=== PATIENT | female | born 1990 | race Caucasian/White ===

== ENCOUNTER 2016-12-22 18:59 | Outpatient (CLI) | payer MEDICAID ==
[~2016-12-22] VITALS: Ht 154.9 cm; Wt 91.6 kg
[~2016-12-22 18:59] MED LIST: ACIDOPHILUS1 CTB PO; BACTRIM DS 8001 TA1 PO; CEPHALEXIN500 MG PO; CLINDAMYCIN HC300 MG PO; LIDOCAINE 2% VI1 UDC TP; MEDROL 4MG. DOSE4 MG PO; MUSCLE RELAXER; TRAMADOL 50MG T50 MG PO
[2016-12-22 19:34] LABS: URINE BILIRUBIN - DIPSTICK NEGATIVE (NEG); URINE BLOOD NEGATIVE (NEG)
[2016-12-22 19:51] VITALS: BP 131/79
[2016-12-22] MEDS ORDERED: PRENATAL PLUS1 TA1 PO (19:57)
[2016-12-22] MEDS ORDERED: IRON TABLETS325 MG PO (19:58)
[2016-12-22 20:30] LABS: AMPHETAMINES/METAMPHETAMINES NEGATIVE ng/mL (<1000)
[2016-12-27 03:40] LABS: Neisseria gonorrhoeae, NAA Negative (Negative)
== END 2016-12-22 21:50 | disposition home or self-care (01) ==
LOC: OBOUT 18:59 → OB 19:01 → OBOUT 21:50
PROVIDERS: Obstetrics & Gynecology
DX: O26.93 Pregnancy related conditions, unspecified, third trimester (principal); Z3A.30 30 weeks gestation of pregnancy; R10.84 Generalized abdominal pain; N93.9 Abnormal uterine and vaginal bleeding, unspecified

== ENCOUNTER 2017-01-04 07:40 | Inpatient (IN) | payer MEDICAID ==
[~2017-01-04] VITALS: Ht 154.9 cm; Wt 102.1 kg
[2017-01-04 07:30] VITALS: BP 155/91
[~2017-01-04 07:40] MED LIST changes: +IRON TABLETS325 MG PO; +PRENATAL PLUS1 TA1 PO
--- NOTE | 2017-01-04 08:06 | Delivery Note ---
Delivery note Delivery date: 01/04/17 Delivery time: 06 Anesthesia: None Was labor medically induced? No Gestational age in weeks: 34 weeks Days: 2 days Delivery prior to 39 weeks? Yes Justification for delivery: Active labor Sex: male Type of suction: bulb AF: Meconium-stained LAC or MLE: LAC (NONE) Delivery procedure: Normal Delivery Delivery of placenta: spontaneous Clinical note She is a 26-year-old 5 para 3 aborta 1 who was 34 weeks and 2 days gestational age. Around midnight last night she started having some crampiness and Cristian Sterling likes contractions. She said that she had a warm bath and then around 4 AM they started getting a little stronger. She still thought they were [place] Sterling and then began having stronger contractions. She subsequently delivered spontaneously a liveborn male child at around 6:30 this morning. The actual delivery time was not available. The baby is a liveborn male child weighing 3 lbs. 9 oz. He is 15 inches long. He will be transferred to [facility] later this morning. She received IV oxytocin and delivered spontaneously the placenta at 7:56 AM. It had a normal three-vessel cord. It appeared there may have been some form of abruption. She did not get her profile so we'll get her blood this morning. Her estimated blood loss was approximately 400 mL. We will plan to discharge her home later today as long she stable. at 0806
[2017-01-04 09:21] LABS: HEMOGLOBIN 13.5 g/dL (12.2-16.2); LYMPH % 6.3 % (10-50.0)
[2017-01-04 10:59] LABS: NEUTROPHILS 87 % (42-76)
--- NOTE | 2017-01-04 11:42 | Discharge Summary ---
Discharge Summary Admission date: 01/04/17 Discharge date: 01/04/17 Discharge diagnoses: , delivery at home Clinical note: She is a 26-year-old 5 now para 4 aborta 1 who was 34 weeks gestational age. She began having contractions last night and rapidly progressed to full dilation and delivered spontaneously a liveborn male child at home. The baby weighed 3 lbs. 15 oz. was 15 inches long. It has now been transferred to [facility] for further care since the baby is only 34 weeks. Course in hospital: She has done well and had delivered her placenta here in the hospital shortly after arrival. She has had no episodes of heavy bleeding. There were no perineal or vaginal lacerations. She is being discharged home this afternoon so she can follow up with her baby at [facility]. Plans for ongoing care: She is discharged home to follow-up with me in approximately 2 weeks' time. Discharge medications She will continue with her vitamins and iron. She is taking over-the- counter analgesics for pain. DC/follow-up instructions She was given the usual instructions with respect to limiting her activity, driving and sexual activity. Condition at discharge Stable and improved at 1142
[2017-01-04 12:07] LABS: ABO BLOOD TYPE O; RH BLOOD TYPE POSITIVE
[2017-01-04 13:37] LABS: AMPHETAMINES/METAMPHETAMINES NEGATIVE ng/mL (<1000)
[2017-01-05 08:41] LABS: HBsAg Screen Negative (Negative); Rapid Plasma Reagin, Quant Non Reactive (NonRea<1:1); Rubella Antibodies, IgG 4.84 index (Immune >0.99)
== END 2017-01-04 13:30 | disposition home or self-care (01) | DRG 776 ==
LOC: OB 07:40
PROVIDERS: Nurse Practitioner Obstetrics & Gynecology
DX: Z39.0 Encounter for care and examination of mother immediately after delivery (principal); Z3A.34 34 weeks gestation of pregnancy

== ENCOUNTER 2017-02-22 06:23 | Day surgery (SDC) | payer MEDICAID ==
[~2017-02-22] VITALS: Ht 154.9 cm; Wt 87.1 kg
[2017-02-22 07:07] LABS: HEMOGLOBIN 12.6 g/dL (12.2-16.2); LYMPH # 1.5 K/mm3 (0.7-4.5); LYMPH % 29.6 % (10-50.0)
--- NOTE | 2017-02-22 08:18 | Operative Note ---
Procedure/Operative Record Procedure Date of procedure: 02/22/17 Pre-Op Dx: Desire for sterilization Post-Op Dx: Desire for sterilization Procedure performed: Laparoscopic bilateral salpingectomy, lysis of adhesions Surgeon: Dr. Marcial Ford Multiple Drum Sander(s): None Anesthesia: Eduard Sneed EBL (ml): 25 Clinical note: She is a 26-year-old 5 para 4 lady who expressed desire for sterilization the risks and benefits as well as the irreversibility of bilateral salpingectomy were discussed with the patient prior surgery. Operative findings: She had a normal-appearing anteverted bulky uterus consistent with her previous deliveries. There was an adhesion of omentum along the anterior abdominal wall that was approximately 1 inch wide just below the umbilicus. The tubes and ovaries appeared normal. The deep pelvis. Normal. The upper abdomen appeared normal. Operative note: She was taken to the operating room where general anesthesia was found be adequate. She was prepped and draped in the normal sterile fashion in the semi- lithotomy position. a weighted speculum was placed in the vagina and the anterior lip of the cervix was grasped with a tenaculum. Sanz dilators used to dilate the cervix to approximate 4 mm. I then inserted a Deisi uterine manipulator into the uterine cavity and insufflated the balloon. I injected 10 mL of 0.5 percent ropivacaine around the umbilicus and made a small incision within the umbilicus. I then inserted a Veress needle into the abdominal cavity. The abdominal cavity was then insufflated with carbon dioxide gas to a pressure of 20 mmHg. I then inserted a 5 mm trocar under direct vision. I injected through and through the pubic hairline, made a small incision here and inserted an 8 mm trocar under direct vision. I identified the inferior epigastric arteries on the LEFT side, went lateral to these and injected through and through. I then inserted a 5 mm trocar under direct vision. I then changed a camera to the LEFT lower quadrant port and using the Harmonic scalpel through the umbilical port I was able to take down the adhesions in the midline just below the umbilicus. They were obstructing my view to the pelvis. We then changed back to the camera and the umbilical position and using both Harmonic scalpel and graspers I was able to grasp the patient's LEFT tube. I then cut through the LEFT tube close to the cornua after cauterizing along the tube RIGHT to the level of the cornua. I then grasped the distal end of the LEFT tube and using Harmonic scalpel cut along the meso salpinx. The tube was then removed. This was similarly performed on the patient's RIGHT side. After assuring hemostasis we then injected 20 mL of 0.5 percent ropivacaine into the pelvis. The secondary trochars were then removed under direct vision. The sites were hemostatic. The gas was let of the abdomen and the primary trocar and camera were removed together. The 8 mm trocar site was closed deeply with 2-0 Vicryl suture. The skin was closed with subcuticular 4-0 Monocryl. The 5 mm trocar sites were closed with subcuticular 4-0 Monocryl suture. Sterile dressings were applied. The patient tolerated the procedure well and was taken to the recovery room in excellent condition. All sponge instrument and needle counts were correct. The estimated blood loss was less than 25 mL. Conplications: None Specimens: Bilateral fallopian tubes at 0817
--- NOTE | 2017-02-22 08:19 | Anesthesia Record ---
Anesthesia Record Part I Total IV fluids: 700 EBL (ml): 0 Urine Output: 0 B/P: 121/71 % SaO2: 90 Pulse: 99 Resps: 12 Temp: 98 Patient is: Drowsy, Stable Stable to PACU at: 0815 at 0819
--- NOTE | 2017-02-22 08:20 | Anesthesia Record ---
Anesthesia Record Part II Discharge time: 844 Destination: Same day surgery PACU nurse assessment review? Yes Patient is: Awake, Stable Anesthesia complications? No at 0819
[2017-02-22 10:47] VITALS: BP 135/74
== END 2017-02-22 09:49 | disposition home or self-care (01) ==
LOC: SDC 06:23
PROVIDERS: Nurse Practitioner Obstetrics & Gynecology
PROC: 0DNW4ZZ Release Peritoneum, Percutaneous Endoscopic Approach (ICD-10-PCS; 2017-02-22)
PROC: 0UT74ZZ Resection of Bilateral Fallopian Tubes, Percutaneous Endoscopic Approach (ICD-10-PCS; principal; 2017-02-22 07:30)
DX: Z30.2 Encounter for sterilization (principal); N73.6 Female pelvic peritoneal adhesions (postinfective)
CPT/HCPCS: J2405; J2710